=== PATIENT | female | born 1975 | race Caucasian/White ===

== ENCOUNTER 2019-04-28 15:35 | Emergency (ER) | payer BC ==
[~2019-04-28] VITALS: Ht 165.1 cm; Wt 72.7 kg
--- NOTE | 2019-04-28 15:58 | NUR ---
PT STATES SHE FELT WEAK AND ALMOST PASSED OUT AFTER A PHYSICAL TEST FOR WORK. PT STATES SHE HAS HX OF ANEMIA, STARTED A COUGH AND HAD CHEST HEAVINESS AFTER THE EVENT. PT IS NOT IN ANY DISTRESS, RESPIRATIONS EVEN..PA AT BEDSIDE.
[2019-04-28] MEDS ORDERED: SODIUM CHLORIDE 0.9% 1,000ML IVBOLUS ONE (16:00)
[2019-04-28] MEDS ORDERED: SODIUM CHLORIDE FLUSH 10ML SYR IVF ONE (16:00)
[2019-04-28] MEDS ORDERED: ACETAMINOPHEN 325 MG TABLET ONE (16:09)
[2019-04-28 16:16] LABS: BASOPHILS # (AUTO) 0.02 x10^3/uL (0-0.1); BASOPHILS % (AUTO) 0 % (0-1); EOSINOPHILS # (AUTO) 0.11 x10^3/uL (0-0.4); EOSINOPHILS % (AUTO) 2 % (1-7); LYMPHOCYTES # (AUTO) 2.33 x10^3/uL (1-3.4); LYMPHOCYTES % (AUTO) 34 % (22-44); MD NO; MEAN CORPUSCULAR HEMOGLOBIN 21.7 pg (27.0-34.8); MEAN CORPUSCULAR HGB CONC 30.7 g/dL (32.4-35.8); MEAN CORPUSCULAR VOLUME 70.8 fL (80-100); MEAN PLATELET VOLUME 8.6 fL (7.4-10.4); MONOCYTES # (AUTO) 0.51 x10^3/uL (0.2-0.8); MONOCYTES % (AUTO) 7 % (2-9); NEUTROPHILS % (AUTO) 57 % (42-75); PLATELET COUNT 281 x10^3/uL (130-400); RED BLOOD COUNT 4.03 x10^6/uL (3.82-5.3); RED CELL DISTRIBUTION WIDTH 17.7 % (9.6-15.2)
--- NOTE | 2019-04-28 16:21 | NUR ---
MEDICATED, IV ESTABLISHED
[2019-04-28 16:26] LABS: ALANINE AMINOTRANSFERASE 25 U/L (12-78); ALBUMIN 3.8 g/dL (3.4-5.0); ANION GAP 6 mmol/L (5-15); CALCIUM 8.5 mg/dL (8.5-10.1); CHLORIDE 111 mmol/L (98-107); CREATININE 0.81 mg/dL (0.55-1.02)
[2019-04-28 16:30] LABS: ALKALINE PHOSPHATASE 75 U/L (45-117); BILIRUBIN,TOTAL 0.3 mg/dL (0.2-1.0); TOTAL PROTEIN 7.5 g/dL (6.4-8.2); TROPONIN I < 0.015 ng/mL (0.000-0.045)
[2019-04-28] MEDS ORDERED: ALBUTEROL SULFATE 2.5 MG/3 ML NPPB ONE (16:30)
[2019-04-28] MEDS ORDERED: ACETAMINOPHEN 325 MG TABLET PO ONE (16:30)
[2019-04-28] MEDS ORDERED: ALBUTEROL SULFATE 2.5 MG/3 ML ONE (16:44)
--- NOTE | 2019-04-28 16:48 | NUR ---
INFORMED PT FOR UA. LAYOUT MECHANIC APPLIED. RT AT BEDSIDE.
--- NOTE | 2019-04-28 18:03 | NUR ---
PT RESTING. VS STABLE. GIVEN ICE CHIPS AND APPLE JUICE. NO NEEDS AT THIS TIME. NO RESPIRATORY DISTRESS.
--- NOTE | 2019-04-28 19:00 | NUR ---
PT RESTING W FAMILY AT BEDSIDE. NO NEEDS AT THIS TIME. WAITING FOR RESULTS
[2019-04-28 19:21] LABS: HCG UR SG 1.022 (1.003-1.030)
[2019-04-28 19:22] LABS: MICROSCOPIC INDICATED
[2019-04-28 19:34] LABS: CULTURE INDICATED? YES
--- NOTE | 2019-04-28 20:04 | NUR ---
Patient/Caregiver given discharge instructions and they have confirmed that they understand the instructions. Patient ambulatory with steady gait.
[2019-04-28 20:06] VITALS: BP 115/78
== END 2019-04-28 20:10 | disposition home or self-care (01) ==
LOC: ED 16:08
DX: J45.909 Unspecified asthma, uncomplicated (principal); D53.9 Nutritional anemia, unspecified
CPT/HCPCS: 36415; 71045; 80053; 81001; 81025; 84484; 85025; 87086; 93005; 94640; 96360; 96361; 99284; J7030; J7613